=== PATIENT | female | born 1995 | race Caucasian/White ===

== ENCOUNTER 2017-02-17 16:09 | Emergency (ER) | payer BC ==
[2017-02-17 16:12] VITALS: BP 133/71; PULSE 75; TEMP 98.4; BMI 30.1
[2017-02-17] MEDS ORDERED: SODIUM CHLORIDE 0.9% 1000 ML INFUS.BAG IV ONE (17:10)
[2017-02-17] MEDS ORDERED: KETOROLAC TROMETHAMINE 30 MG/1 ML VIAL IVPUSH ONE (17:11)
[2017-02-17] MEDS ORDERED: METOCLOPRAMIDE HCL INJECTION 10 MG/2 ML VIAL IVPUSH ONE (17:11)
--- NOTE | 2017-02-17 17:29 | PDOC ---
History of Present Illness - General Chief Complaint: Headache Stated Complaint: MIGRAINE Time Seen by Provider: 02/17/17 16:30 - History of Present Illness Initial Comments: 02/17/17 17:13 CHIEF COMPLAINT: headache HISTORY OF PRESENT ILLNESS: 21 yo F with no PMH presents to [facility] with headache x 5 days. Patient reports that she was bending down to brass pickler a phone when she hit her head on a windowsill. She denies any changes in vision, vomiting, LOC, or difficulty walking. PAtient states she has taken 2 Advil with little relief. She states that she is on the Depo shot and there is no chance of . PAST MEDICAL HISTORY: Denies past medical history FAMILY HISTORY: Denies SOCIAL HISTORY: Denies tobacco, alcohol, illicit drug use. SURGICAL HISTORY: Denies ALLERGIES: amoxicillin REVIEW OF SYSTEMS General/Constitutional: Denies fever or chills. HEENT: Denies change in vision. Gastrointestinal: Denies nausea, vomiting. Musculoskeletal: Denies joint or muscle swelling or pain. Denies neck or back pain. Skin: Denies rash or easy bruising. Neurologic: Headache x 5 days. Denies vertigo, loss of consciousness, or loss of sensation. PHYSICAL EXAM General Appearance: Well-appearing, appropriately dressed. No apparent distress. HEENT: No external injury, ecchymosis or hematoma visible to forehead. EOMI, PERRLA. No photophobia, scleral icterus. Respiratory/Chest: Lungs CTAB. Cardiovascular: RRR. S1, S2. Neurologic: vp security II-XII intact. Fully oriented, alert. Appropriate mood/affect. Motor strength 5/5. No appreciable EOM palsy, facial droop or sensory deficit. Past History - Past Medical History Allergies/Adverse Reactions: Allergies Allergy/AdvReac Type Severity Reaction Status Date / Time amoxicillin Allergy Verified 02/17/17 16:12 Home Medications: Ambulatory Orders NK [No Known Home Medication] 02/17/17 - Psycho/Social/Smoking Cessation Hx Suicidal Ideation: No Smoking History: Never smoked Information on smoking cessation initiated: No *Physical Exam - Vital Signs Last Vital Signs Temp Pulse Resp BP Pulse Ox 98.4 F 75 18 133/71 100 02/17/17 16:09 02/17/17 16:09 02/17/17 16:09 02/17/17 16:09 02/17/17 16:09 Medical Decision Making - Medical Decision Making 02/17/17 17:31 21 yo F with no PMH presents to [facility] with headache x 5 days. -urine preg -IVF, Toradol, Reglan, Benadryl 02/17/17 17:52 Patient is well appearing with no focal neurological deficits, in exam room with two friends laughing and talking. Patient reassessed; states she is feeling much better. Advised patient of signs and symptoms for return to ER; patient verbalized understanding and agrees to plan. *DC/Admit/Observation/Transfer Diagnosis at time of Disposition: Migraine Qualifiers: Migraine type: unspecified Status migrainosus presence: without status migrainosus Intractability: not intractable Qualified Code(s): G43.909 - Migraine, unspecified, not intractable, without status migrainosus - Discharge Dispostion Disposition: HOME Condition at time of disposition: Improved Admit: No - Referrals Referrals: Sirisha Roe MD [Staff Physician] - - Patient Instructions Printed Discharge Instructions: DI for Migraine Additional Instructions: Please follow up with the primary care doctor next week as discussed. If you experience any change in vision, difficulty speaking or swallowing, weakness, or difficulty walking, fever, nausea, vomiting, or any new or worsening symptoms , please return to the ER. - Post Discharge Activity Work/School Note: Back to Work
[2017-02-17] MEDS ORDERED: METOCLOPRAMIDE HCL INJECTION 10 MG/2 ML VIAL ONE (17:34)
[2017-02-17] MEDS ORDERED: KETOROLAC TROMETHAMINE 30 MG/1 ML VIAL ONE (17:34)
== END 2017-02-17 18:22 | disposition home or self-care (01) ==
LOC: JERFT 16:09
PROC: 3E0333Z Introduction of Anti-inflammatory into Peripheral Vein, Percutaneous Approach (ICD-10-PCS; principal; 2017-02-17)
PROC: 3E033GC Introduction of Other Therapeutic Substance into Peripheral Vein, Percutaneous Approach (ICD-10-PCS; 2017-02-17)
PROC: 3E033GC Introduction of Other Therapeutic Substance into Peripheral Vein, Percutaneous Approach (ICD-10-PCS; 2017-02-17)
DX: G43.909 Migraine, unspecified, not intractable, without status migrainosus (principal)
CPT/HCPCS: 84703; 99281-25